=== PATIENT | male | born 1970 | race Caucasian/White ===

== ENCOUNTER 2021-08-15 10:34 | Emergency (ER) | payer BC ==
[2021-08-15] MEDS ORDERED: Sodium Chloride 0.9% 1,000 ML IV ONE (10:39)
[2021-08-15] MEDS ORDERED: Sodium Chloride 0.9% 10 ML Syringe FLUSH PRN (10:39)
--- NOTE | 2021-08-15 10:50 | EDM.PDOC ---
ED HPI GENERAL MEDICAL PROBLEM - General Time Seen by Provider: 08/15/21 10:38 Source of Information: Reports: Patient, EMS - History of Present Illness INITIAL COMMENTS - FREE TEXT/NARRATIVE: Zheng is a 51 y/o male who is brought to the ER from the [facility] in following an I&D of an abscess on his LLQ abdominal region. He has had a mass on the abdomen for the last 4-6 weeks and then in the last couple days it got much bigger so this AM he went in to the clinic at 0830 and had Nicole Lacy FIELD INSURANCE SALES MANAGER I&D the region. The wound was packed and he left the clinic, but went back to the clinic when the dressing was saturated with blood. The clinic staff attempted to grad the artery with a Sue clamp but could not get a hold of it and they also trued to cauterize the area, but that did not help either. He had 4 saturated ABDs at the clinic and then he was sent here to the ER. Patient got a bit dizzy at the clinic when he sat up too fast, but seems to be okay on arrival here. - Related Data Allergies Allergy/AdvReac Type Severity Reaction Status Date / Time No Known Allergies Allergy Verified 08/15/21 10:55 Home Meds: Home Meds Aspirin 81 mg PO DAILY 08/15/21 [History] Cyanocobalamin/Folic AC/Vit B6 [West[place] One Tablet] 1 each PO DAILY 08/15/21 [History] Cyclobenzaprine [Flexeril] 10 mg PO TID PRN 08/15/21 [History] FLUoxetine HCl [Prozac] 20 mg PO DAILY 08/15/21 [History] FLUoxetine [PROzac] 40 mg PO DAILY 08/15/21 [History] LORazepam [Ativan] 0.5 mg PO BEDTIME PRN 08/15/21 [History] Mirtazapine [Remeron] 15 mg PO BEDTIME 08/15/21 [History] Omeprazole 40 mg PO BEDTIME 08/15/21 [History] Simvastatin [Zocor] 20 mg PO BEDTIME 08/15/21 [History] Review of Systems - Review of Systems Review Of Systems: See Below Constitutional: Reports: No Symptoms Eyes: Reports: No Symptoms Ears: Reports: Dizziness Nose: Reports: No Symptoms Mouth/Throat: Reports: No Symptoms Respiratory: Reports: No Symptoms Cardiovascular: Reports: No Symptoms GI/Abdominal: Reports: Other (Bleeding surgical wound) Genitourinary: Reports: No Symptoms Musculoskeletal: Reports: No Symptoms Skin: Reports: No Symptoms Neurological: Reports: Dizziness Psychiatric: Reports: No Symptoms ED EXAM, GENERAL - Physical Exam Exam: See Below General Appearance: Alert, WD/WN, No Apparent Distress (Adult male) Ears: Hearing Grossly Normal Nose: Normal Inspection Throat/Mouth: Normal Inspection, Normal Lips, Normal Voice Head: Atraumatic, Normocephalic Respiratory/Chest: No Respiratory Distress Cardiovascular: Normal Peripheral Pulses, Regular Rate, Rhythm GI/Abdominal: Soft, Other (Note surgical incision to LLQ is oozing bright blood when pressure released.) (Male) Exam: Deferred Rectal (Males) Exam: Deferred Back Exam: Normal Inspection Extremities: Normal Inspection, Normal Range of Motion, Normal Capillary Refill Neurological: Alert, Oriented, CN II-XII Intact, Normal Cognition, No Motor/Sensory Deficits Psychiatric: Normal Affect Skin Exam: Warm, Dry, Intact, Normal Color Lymphatic: No Adenopathy Course - Vital Signs Text/Narrative:: 1038 The patient was seen by the FIELD INSURANCE SALES MANAGER. Lab ordered and IV placed. Attempted to pack wound with Surgical and replace the ABD, but bleeding did not slow down adn the wound still required direct pressure. 1040 [facility] contacted and case presented. 1100 Dr Tim from [facility] ER returned call. Pt accepted. Advised to try Lidocaine with Epi in region prior to transport. 1115 Lidocaine 2% with Epi-8 ml injected into wound and surrounding region. Note pulsating blood from the wound, cannot visualize any artery due to cautery debris. Pressure reapplied following injection. 1120 Bleeding decreased, but unable to see a vessel to place a suture. Pressure dressing placed. Pt packaged for transfer to [place]. Pt remained stable until he left the ER with EMS. Last Recorded V/S: Last Vital Signs Temp 36.8 C 08/15/21 10:35 Pulse 74 08/15/21 10:35 Resp 14 08/15/21 10:35 BP 128/87 08/15/21 10:35 Pulse Ox 98 08/15/21 10:35 - Orders/Labs/Meds Orders: Active Orders 24 hr Category Date Time Status Sodium Chloride 0.9% [Normal Saline] 1,000 ml Med 08/15/21 10:39 Active IV ONETIME Sodium Chloride 0.9% [Saline Flush] Med 08/15/21 10:39 Active 10 ml FLUSH ASDIRECTED PRN Saline Lock Insert [OM.PC] Stat Oth 08/15/21 10:39 Ordered Medication Orders Sodium Chloride (Normal Saline) 1,000 mls @ 999 mls/hr IV ONETIME ONE Stop: 08/15/21 11:39 Last Admin: 08/15/21 10:47 Dose: 999 mls/hr Documented by: ALAN Sodium Chloride (Sodium Chloride 0.9% 10 Ml Syringe) 10 ml FLUSH ASDIRECTED PRN PRN Reason: Keep Vein Open Labs: Laboratory Tests 08/15/21 08/15/21 Range/Units 10:49 10:49 WBC 9.4 (4.0-10.0) x10^3/uL RBC 3.61 L (4.5-6.0) x10^6/uL Hgb 11.5 L (14.0-18.0) g/dL Hct 32.2 L (40.0-52.0) % MCV 89.2 (78.0-93.0) fL MCH 31.9 (26.0-32.0) pg MCHC 35.7 (32.0-36.0) g/dL RDW Coeff of Ousmane 18.5 H (10.0-15.0) % Plt Count 184 (130-400) x10^3/uL Immature Gran % (Auto) 0.50 H (0.00-0.43) % Neut % (Auto) 80.8 H (50.0-80.0) % Lymph % (Auto) 9.7 L (25.0-50.0) % [place] % (Auto) 7.7 (2.0-11.0) % Eos % (Auto) 1.1 (0.0-4.0) % Baso % (Auto) 0.2 (0.2-1.2) % Neut # (Auto) 7.6 (1.8-7.7) x10^3/uL Lymph # (Auto) 0.9 L (1.0-4.8) x10^3/uL [place] # (Auto) 0.7 (0.0-0.8) x10^3/uL Eos # (Auto) 0.1 (0.0-0.5) x10^3/uL Baso # (Auto) 0.0 (0.0-0.2) x10^3/uL Immature Gran # (Auto) 0.05 (0.00-0.07) x10^3/uL Sodium 142 (136-145) mmol/L Potassium 4.3 (3.5-5.1) mmol/L Chloride 107 (98-107) mmol/L Carbon Dioxide 27 (21-32) mmol/L Anion Gap 12.3 (5-15) mmol/L BUN 19 H (7-18) mg/dL Creatinine 0.8 (0.70-1.30) mg/dL Est Cr Clr Drug Dosing TNP Estimated GFR (MDRD) > 60 Glucose 103 H (70-99) mg/dL Calcium 9.1 (8.5-10.1) mg/dL Corrected Calcium 9.3 (8.5-10.1) mg/dL Total Bilirubin 2.0 H (0.2-1.0) mg/dL AST 18 (15-37) U/L ALT 34 (16-63) U/L Alkaline Phosphatase 68 (46-116) U/L Total Protein 6.7 (6.4-8.2) g/dL Albumin 3.8 (3.4-5.0) g/dL Globulin 2.9 Albumin/Globulin Ratio 1.31 Meds: Medications Generic Name Dose Route Start Last Admin Trade Name Freq PRN Reason Stop Dose Admin Sodium Chloride 1,000 mls @ 999 mls/hr 08/15/21 10:39 08/15/21 10:47 Normal Saline IV 08/15/21 11:39 999 mls/hr ONETIME ONE Administration Sodium Chloride 10 ml 08/15/21 10:39 Sodium Chloride 0.9% 10 Ml Syringe FLUSH ASDIRECTED PRN Keep Vein Open Discontinued Medications Generic Name Dose Route Start Last Admin Trade Name Freq PRN Reason Stop Dose Admin Lidocaine/Epinephrine 20 ml 08/15/21 11:08 Lidocaine 2% With Epinephrine 1:100,000 20 Ml Mdv INJECT 08/15/21 11:09 ONETIME ONE Departure - Departure Time of Disposition: 11:26 Disposition: DC/Tfer to Acute Hospital 02 Condition: Good Clinical Impression: Acute bleeding, Status post incision and drainage - Discharge Information Forms: Interfacility Transfer EMTALA Additional Instructions: -Transfer to [facility] ER to Dr Tim via [facility] EMS Sepsis Event Note (ED) - Focused Exam Vital Signs: Vital Signs Temp Pulse Resp BP Pulse Ox 08/15/21 10:35 36.8 C 74 14 128/87 98 - Problem List & Annotations (1) Acute bleeding SNOMED Code(s): 666254860, 075208244 Code(s): R58 - HEMORRHAGE, NOT ELSEWHERE CLASSIFIED Status: Acute (2) Status post incision and drainage SNOMED Code(s): 745007672, 945425160 Code(s): Z98.890 - OTHER SPECIFIED POSTPROCEDURAL STATES Status: Acute Annotation/Comment:: Abdominal wall abscess I&D today at clinic, [id number] at the clinic prior to arrival in the ER.SurgicalCell placed in wound and Lidocaine 2% with Epi injected into wound. Bleeding slowed followig the injection, but did not stop. Sending pt for Surgeon to evaluate wound. - Problem List Review Problem List Initiated/Reviewed/Updated: Yes - My Orders Last 24 Hours: My Active Orders 08/15/21 10:39 Sodium Chloride 0.9% [Normal Saline] 1,000 ml IV ONETIME Sodium Chloride 0.9% [Saline Flush] 10 ml FLUSH ASDIRECTED PRN Saline Lock Insert [OM.PC] Stat - Assessment/Plan Last 24 Hours: My Active Orders 08/15/21 10:39 Sodium Chloride 0.9% [Normal Saline] 1,000 ml IV ONETIME Sodium Chloride 0.9% [Saline Flush] 10 ml FLUSH ASDIRECTED PRN Saline Lock Insert [OM.PC] Stat Plan: See above
[2021-08-15 10:53] VITALS: BP 128/87; PULSE 74
[2021-08-15] MEDS ORDERED: Lidocaine 2% with EPINEPHrine 1:100,000 20 ML MDV INJECT ONE (11:08)
[2021-08-15 11:13] LABS: CHLORIDE,CL 107 mmol/L (98-107); SODIUM,NA 142 mmol/L (136-145)
[2021-08-15 11:14] LABS: ANION GAP 12.3 mmol/L (5-15)
== END 2021-08-15 11:33 | disposition short-term general hospital (02) ==
LOC: VM.ED 10:34
DX: L76.22 Postprocedural hemorrhage of skin and subcutaneous tissue following other procedure (principal); Z79.82 Long term (current) use of aspirin
CPT/HCPCS: 36415; 80053; 85025; 99285; J7030